=== PATIENT | male | born 1970 | race Caucasian/White ===

== ENCOUNTER 2023-06-18 07:56 | Day surgery (SDC) | payer OTHER ==
[2023-06-15 14:06] VITALS: BMI 28.1
[2023-06-18] MEDS ORDERED: PROPOFOL 120 ML ONE (09:01)
[2023-06-18 09:28] VITALS: RESP 16; TEMP 97.5
[2023-06-18 09:50] VITALS: BP 123/74; PULSE 78
== END 2023-06-18 09:40 | disposition home or self-care (01) ==
LOC: FASU-ENDO 07:56
PROVIDERS: ATTEND Internal Medicine
PROC: 0DBL8ZX Excision of Transverse Colon, Via Natural or Artificial Opening Endoscopic, Diagnostic (ICD-10-PCS; principal; 2023-06-18 08:58)
DX: Z12.11 Encounter for screening for malignant neoplasm of colon (principal); K64.8 Other hemorrhoids; Z83.71 Family history of colonic polyps; R19.7 Diarrhea, unspecified
CPT/HCPCS: 88305-TC